=== PATIENT | female | born 1980 | race Two or more races ===

== ENCOUNTER 2017-10-28 09:35 | Emergency (ER) | payer MEDICAID ==
[2017-10-28] MEDS ORDERED: MORPHINE SULFATE 10 MG/ML INJ IV ONE ×2 (10:24→14:00)
[2017-10-28] MEDS ORDERED: ONDANSETRON 4 MG TAB.RAPDIS PO ONE (10:24)
--- NOTE | 2017-10-28 10:26 | ER Document Report ---
ED Medical Screen (RME) - General Chief Complaint: Flank Pain Stated Complaint: RIGHT SIDE/FLANK PAIN Time Seen by Provider: 10/28/17 10:20 Mode of Arrival: Ambulatory Information source: Patient Notes: This is a 37-year-old female with a history of a left nephrectomy, kidney infections in the past who presents to the emergency room with right flank pain and dysuria. Her medicines include Xanax, phentermine, Wellbutrin. She is not allergic to any medicines. She does not have any local doctor (she recently moved from [place]). TRAVEL OUTSIDE OF THE [place] IN LAST 30 DAYS: No - Related Data Allergies/Adverse Reactions: No Known Allergies Allergy (Verified 10/28/17 09:36) Past Medical History - Social History Chew tobacco use (# tins/day): No Frequency of alcohol use: None Drug Abuse: None Renal/ Medical History: Denies: Hx Peritoneal Dialysis Past Surgical History: Reports: Hx Mastectomy - Left kidney removed 2015, Hx Tubal Ligation Physical Exam - Vital signs Vitals: Temp Pulse Resp BP Pulse Ox 98.5 F 85 16 125/80 100 10/28/17 09:39 10/28/17 09:39 10/28/17 09:39 10/28/17 09:39 10/28/17 09:39 Course - Vital Signs Vital signs: Temp Pulse Resp BP Pulse Ox 98.5 F 85 16 125/80 100 10/28/17 09:39 10/28/17 09:39 10/28/17 09:39 10/28/17 09:39 10/28/17 09:39
[2017-10-28 10:32] LABS: APPEARANCE,URINE CLOUDY; BILIRUBIN,URINE NEGATIVE (NEGATIVE); COLOR,URINE YELLOW; GLUCOSE, URINE NEGATIVE (NEGATIVE); KETONES,URINE NEGATIVE (NEGATIVE); LEUKOCYTE ESTERASE,URINE LARGE (NEGATIVE); NITRITE,URINE POSITIVE (NEGATIVE); PROTEIN,URINE 30 mg/dL (NEGATIVE); URINE SPECIFIC GRAVITY 1.019; UROBILINOGEN,URINE NEGATIVE mg/dL (<2.0)
[2017-10-28] MEDS ORDERED: CEFTRIAXONE INJ 1000 MG VIAL IV ONE ×2 (11:07→13:15)
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
--- NOTE | 2017-10-28 11:21 | RADIOLOGY REPORT (SQ) ---
EXAM DESCRIPTION: U/S RETROPERITON (RENAL/AORTA) COMPLETED DATE/TIME: 10/28/2017 11:13 am REASON FOR STUDY: RT FLANK PAIN, EVAL FOR HYDRO COMPARISON: None. TECHNIQUE: Dynamic and static grayscale images acquired of the kidneys and bladder and recorded on P ACS. Additional selected color Doppler and spectral images recorded. LIMITATIONS: None. FINDINGS: RIGHT KIDNEY: Normal size. Normal echogenicity. No solid or suspicious masses. No hydronep hrosis. No calcifications. LEFT KIDNEY: Surgically absent. BLADDER: No masses. OTHER FINDINGS: No other significant finding. IMPRESSION: NORMAL RIGHT RENAL AND BLADDER ULTRASOUND. POST LEFT NEPHRECTOMY. TECHNICAL DOCUMENTATION: JOB ID: [id number] [employer]- All Rights Reserved Reading location - IP/workstation name: [email or web address]
[2017-10-28 14:02] LABS: ABSOLUTE LYMPHOCYTES (AUTO) 1.1 10^3/uL (0.5-4.7); ABSOLUTE MONOCYTES (AUTO) 0.4 10^3/uL (0.1-1.4); BASOPHILS % (AUTO) 0.5 % (0-2); HEMOGLOBIN 12.2 g/dL (12.0-15.5); LYMPHOCYTES % (AUTO) 19.6 % (13-45); MEAN CORPUSCULAR HEMOGLOBIN 29.5 pg (27.0-33.4); MEAN CORPUSCULAR HGB CONC 33.8 g/dL (32.0-36.0); MEAN CORPUSCULAR VOLUME 87 fl (80-97); MONOCYTES % (AUTO) 6.7 % (3-13); PLATELET COUNT 190 10^3/uL (150-450); RED BLOOD COUNT 4.13 10^6/uL (3.72-5.28); RED CELL DISTRIBUTION WIDTH 14.9 % (11.5-14.0); SEGMENTED NEUTROPHILS % (AUTO) 73.2 % (42-78); TOTAL CELLS COUNTED % (AUTO) 100 %; WHITE BLOOD COUNT 5.5 10^3/uL (4.0-10.5)
[2017-10-28] MEDS ORDERED: DIPHENHYDRAMINE HCL 50 MG/ML VIAL IV ONE (14:12)
[2017-10-28 14:28] LABS: ALANINE AMINOTRANSFERASE 31 U/L (9-52); ALBUMIN 3.7 g/dL (3.5-5.0); ALKALINE PHOSPHATASE 82 U/L (38-126); ANION GAP 6 (5-19); ASPARTATE AMINO TRANSFERASE 25 U/L (14-36); BILIRUBIN,DIRECT 0.4 mg/dL (0.0-0.4); BILIRUBIN,TOTAL 0.4 mg/dL (0.2-1.3); BLOOD UREA NITROGEN 15 mg/dL (7-20); CALCIUM 8.6 mg/dL (8.4-10.2); CARBON DIOXIDE 26 mmol/L (22-30); CHLORIDE 105 mmol/L (98-107); GLUCOSE 86 mg/dL (75-110); POTASSIUM 4.5 mmol/L (3.6-5.0); SODIUM 137.2 mmol/L (137-145); TOTAL PROTEIN 6.5 g/dL (6.3-8.2)
[2017-10-28] MEDS ORDERED: KETOROLAC TROMETHAMINE INJ/PF 30 MG/1 ML SDV IV ONE (14:47)
[2017-10-28 15:10] VITALS: BP 118/78
== END 2017-10-28 15:09 | disposition home or self-care (01) ==
LOC: ER 09:35
DX: N12 Tubulo-interstitial nephritis, not specified as acute or chronic (principal); R10.9 Unspecified abdominal pain; Z87.440 Personal history of urinary (tract) infections; Z90.5 Acquired absence of kidney; Z98.51 Tubal ligation status
CPT/HCPCS: 99284; 96375; 96365; 36415; 87086; 84702; 85025; 87088; 80053; 81001; 87186; 76770; J1200; S0119; J1885; J2270; J0696

== ENCOUNTER → 2017-11-28 | Outpatient (CLI) | payer MEDICAID ==
--- NOTE | 2017-11-28 14:32 | RADIOLOGY REPORT (SQ) ---
EXAM DESCRIPTION: KNEE LEFT 4 VIEWS COMPLETED DATE/TIME: 11/28/2017 2:15 pm REASON FOR STUDY: ARTHRITIS OF BOTH KNEES M17.0 BILATERAL PRIMARY OSTEOARTHRITIS OF KNEE COMPARISON: None. NUMBER OF VIEWS: Four views. TECHNIQUE: AP, lateral, and both oblique radiographic images acquired of the left knee. LIMITATIONS: None. FINDINGS: MINERALIZATION: Normal. BONES: No acute fracture or dislocation. No worrisome bone lesions. JOINT: No effusion. SOFT TISSUES: No soft tissue swelling. No radio-opaque foreign body. OTHER: No other significant finding. IMPRESSION: NEGATIVE STUDY OF THE LEFT KNEE. NO RADIOGRAPHIC EVIDENCE OF ACUTE INJURY. TECHNICAL DOCUMENTATION: JOB ID: [id number] [employer]- All Rights Reserved Reading location - IP/workstation name: [email or web address]
--- NOTE | 2017-11-28 14:33 | RADIOLOGY REPORT (SQ) ---
EXAM DESCRIPTION: KNEE RIGHT 4 VIEWS COMPLETED DATE/TIME: 11/28/2017 2:15 pm REASON FOR STUDY: ARTHRITIS OF BOTH KNEES M17.0 BILATERAL PRIMARY OSTEOARTHRITIS OF KNEE COMPARISON: None. NUMBER OF VIEWS: Four views. TECHNIQUE: AP, lateral, and both oblique radiographic images acquired of the right knee. LIMITATIONS: None. FINDINGS: MINERALIZATION: Normal. BONES: No acute fracture or dislocation. No worrisome bone lesions. JOINT: No effusion. SOFT TISSUES: No soft tissue swelling. No radio-opaque foreign body. OTHER: No other significant finding. IMPRESSION: NEGATIVE STUDY OF THE RIGHT KNEE. NO RADIOGRAPHIC EVIDENCE OF ACUTE INJURY. TECHNICAL DOCUMENTATION: JOB ID: [id number] [employer]- All Rights Reserved Reading location - IP/workstation name: [email or web address]
== END ==
LOC: OD 13:52
PROVIDERS: ATTEND Family Medicine
DX: M17.0 Bilateral primary osteoarthritis of knee (principal)

== ENCOUNTER → 2018-03-03 | Outpatient (CLI) | payer MEDICAID ==
[2018-03-03 13:51] LABS: ABSOLUTE LYMPHOCYTES (AUTO) 0.9 10^3/uL (0.5-4.7); ABSOLUTE MONOCYTES (AUTO) 0.4 10^3/uL (0.1-1.4); ABSOLUTE NEUT (AUTO) 3.4 10^3/uL (1.7-8.2); HEMATOCRIT 36.8 % (36.0-47.0); HEMOGLOBIN 12.4 g/dL (12.0-15.5); LYMPHOCYTES % (AUTO) 19.4 % (13-45); MEAN CORPUSCULAR HEMOGLOBIN 29.2 pg (27.0-33.4); MEAN CORPUSCULAR HGB CONC 33.7 g/dL (32.0-36.0); MEAN CORPUSCULAR VOLUME 87 fl (80-97); MONOCYTES % (AUTO) 7.8 % (3-13); PLATELET COUNT 193 10^3/uL (150-450); RED BLOOD COUNT 4.24 10^6/uL (3.72-5.28); RED CELL DISTRIBUTION WIDTH 14.8 % (11.5-14.0); SEGMENTED NEUTROPHILS % (AUTO) 72.8 % (42-78); TOTAL CELLS COUNTED % (AUTO) 100 %; WHITE BLOOD COUNT 4.7 10^3/uL (4.0-10.5)
[2018-03-03 13:52] LABS: AMORPHOUS SEDIMENT,URINE TRACE /HPF; APPEARANCE,URINE CLOUDY; BILIRUBIN,URINE NEGATIVE (NEGATIVE); COLOR,URINE YELLOW; GLUCOSE, URINE NEGATIVE (NEGATIVE); KETONES,URINE NEGATIVE (NEGATIVE); LEUKOCYTE ESTERASE,URINE SMALL (NEGATIVE); NITRITE,URINE NEGATIVE (NEGATIVE); PROTEIN,URINE NEGATIVE (NEGATIVE); URINE SPECIFIC GRAVITY 1.017; UROBILINOGEN,URINE NEGATIVE mg/dL (<2.0)
[2018-03-03 14:30] LABS: ANION GAP 8 (5-19); BLOOD UREA NITROGEN 17 mg/dL (7-20); CALCIUM 9.1 mg/dL (8.4-10.2); CARBON DIOXIDE 27 mmol/L (22-30); CHLORIDE 105 mmol/L (98-107); GLUCOSE 85 mg/dL (75-110); POTASSIUM 4.4 mmol/L (3.6-5.0); SODIUM 140.2 mmol/L (137-145)
== END ==
LOC: OD 12:07
PROVIDERS: ATTEND Internal Medicine Nephrology
DX: R10.9 Unspecified abdominal pain (principal); Z90.5 Acquired absence of kidney
CPT/HCPCS: 36415; 80048; 81001; 85025

== ENCOUNTER → 2018-07-11 | Outpatient (CLI) | payer MEDICAID ==
--- NOTE | 2018-07-11 11:41 | RADIOLOGY REPORT (SQ) ---
EXAM DESCRIPTION: HAND LEFT 3 VIEWS COMPLETED DATE/TIME: 07/11/2018 11:27 am REASON FOR STUDY: PAIN IN LEFT HAND M79.642 PAIN IN LEFT HAND COMPARISON: None. EXAM PARAMETERS: NUMBER OF VIEWS: Three views. TECHNIQUE: AP, lateral and oblique radiographic images acquired of the left hand. LIMITATIONS: Patient could not remove the ring from the 4th digit. FINDINGS: MINERALIZATION: Normal. BONES: No acute fracture or dislocation. No worrisome bone lesions. JOINTS: No effusions. SOFT TISSUES: No soft tissue swelling. No foreign body. OTHER: No other significant finding. IMPRESSION: NEGATIVE STUDY OF THE LEFT HAND. NO RADIOGRAPHIC EVIDENCE OF ACUTE INJURY. TECHNICAL DOCUMENTATION: JOB ID: [id number] [employer]- All Rights Reserved Reading location - IP/workstation name: [email or web address]
== END ==
LOC: OD 11:11
PROVIDERS: ATTEND Nurse Practitioner Family
DX: M79.642 Pain in left hand (principal)

== ENCOUNTER → 2018-09-26 | Outpatient (CLI) | payer MEDICAID ==
--- NOTE | 2018-09-27 09:10 | WOMENS IMAGING REPORT ---
EXAM DESCRIPTION: BILAT SCREENING MAMMO W/CAD COMPLETED DATE/TIME: 09/26/2018 3:45 pm REASON FOR STUDY: Z12.31 SCREENING MAMMO Z12.31 ENCNTR SCREEN MAMMOGRAM FOR MALIGNANT NEOPLASM OF B RE COMPARISON: None. EXAM PARAMETERS: Standard craniocaudal and mediolateral oblique views of each breast recorded using digital acquisition. Read with the assistance of CAD. .[facility] - [employer] Sprayer Version 9.2 LIMITATIONS: None. FINDINGS: No suspicious masses, suspicious calcifications or architectural distortion. No areas of c oncern. IMPRESSION: Negative MAMMOGRAM. BIRADS 1 BREAST DENSITY: b. There are scattered areas of fibroglandular density. BIRAD: ASSESSMENT: 1 NEGATIVE RECOMMENDATION: ROUTINE SCREENING COMMENT: The patient has been notified of the results by letter per MQSA requirements. Additional no tification policies are in place for contacting patient with suspicious or incomplete findings. Quality ID #225: The [employer] recommends an annual screening mammogram for women aged 40 years or over. This facility utilizes a reminder system to ensure that all patients receive reminder letters, and/or direct phone calls for appointments. This includes reminders for routine scr eening mammograms, diagnostic mammograms, or other Breast Imaging Interventions when appropriate. Th is patient will be placed in the appropriate reminder system. TECHNICAL DOCUMENTATION: FINDING NUMBER: (1) ASSESSMENT: (1) JOB ID: [id number] [employer]- All Rights Reserved Reading location - IP/workstation name: [email or web address]
== END ==
LOC: WI 13:20
PROVIDERS: ATTEND Nurse Practitioner Family
DX: Z12.31 Encounter for screening mammogram for malignant neoplasm of breast (principal)
CPT/HCPCS: 77067

== ENCOUNTER 2018-12-18 14:40 | Emergency (ER) | payer MEDICAID ==
[2018-12-18] MEDS ORDERED: KETOROLAC TROMETHAMINE INJ/PF 30 MG/1 ML SDV IV ONE (15:52)
[2018-12-18] MEDS ORDERED: ONDANSETRON HCL INJ/PF 4 MG/2 ML SDV IV ONE (15:52)
[2018-12-18] MEDS ORDERED: FENTANYL CITRATE INJ/PF 100 MCG/2 ML AMPUL IV ONE (15:53)
[2018-12-18 16:28] LABS: ABSOLUTE LYMPHOCYTES (AUTO) 1.2 10^3/uL (0.5-4.7); ABSOLUTE MONOCYTES (AUTO) 0.4 10^3/uL (0.1-1.4); HEMOGLOBIN 12.3 g/dL (12.0-15.5); PLATELET COUNT 265 10^3/uL (150-450); TOTAL CELLS COUNTED % (AUTO) 100 %
[2018-12-18 16:37] LABS: ABSOLUTE NEUT (AUTO) 4.7 10^3/uL (1.7-8.2); BASOPHILS % (AUTO) 0.4 % (0-2); LYMPHOCYTES % (AUTO) 19.5 % (13-45); MEAN CORPUSCULAR HEMOGLOBIN 29.5 pg (27.0-33.4); MEAN CORPUSCULAR HGB CONC 34.1 g/dL (32.0-36.0); MEAN CORPUSCULAR VOLUME 86 fl (80-97); MONOCYTES % (AUTO) 5.9 % (3-13); RED BLOOD COUNT 4.16 10^6/uL (3.72-5.28); RED CELL DISTRIBUTION WIDTH 15.7 % (11.5-14.0); SEGMENTED NEUTROPHILS % (AUTO) 74.2 % (42-78); WHITE BLOOD COUNT 6.3 10^3/uL (4.0-10.5)
[2018-12-18 16:49] LABS: ALBUMIN 4.5 g/dL (3.5-5.0); ALKALINE PHOSPHATASE 100 U/L (38-126); ANION GAP 9 (5-19); ASPARTATE AMINO TRANSFERASE 34 U/L (14-36); BILIRUBIN,DIRECT 0.1 mg/dL (0.0-0.4); BILIRUBIN,TOTAL 0.5 mg/dL (0.2-1.3); BLOOD UREA NITROGEN 12 mg/dL (7-20); CALCIUM 8.9 mg/dL (8.4-10.2); CARBON DIOXIDE 25 mmol/L (22-30); CHLORIDE 105 mmol/L (98-107); GLUCOSE 93 mg/dL (75-110); POTASSIUM 4.1 mmol/L (3.6-5.0); TOTAL PROTEIN 8.1 g/dL (6.3-8.2)
[2018-12-18 17:11] LABS: APPEARANCE,URINE CLEAR; BILIRUBIN,URINE NEGATIVE (NEGATIVE); COLOR,URINE STRAW; GLUCOSE, URINE NEGATIVE (NEGATIVE); KETONES,URINE NEGATIVE (NEGATIVE); LEUKOCYTE ESTERASE,URINE NEGATIVE (NEGATIVE); NITRITE,URINE NEGATIVE (NEGATIVE); PROTEIN,URINE NEGATIVE (NEGATIVE); URINE SPECIFIC GRAVITY 1.004; UROBILINOGEN,URINE NEGATIVE mg/dL (<2.0)
[2018-12-18] MEDS ORDERED: HYDROMORPHONE HCL INJ/PF 2 MG/ML AMPULE IV ONE (18:02)
--- NOTE | 2018-12-18 18:10 | ER Document Report ---
ED General - General Chief Complaint: Flank Pain Stated Complaint: FLANK PAIN Time Seen by Provider: 12/18/18 15:47 Primary Care Provider: PAT MARIA FNP-C [Primary Care Provider] - Follow up as needed TRAVEL OUTSIDE OF THE [place] IN LAST 30 DAYS: No - Related Data Allergies/Adverse Reactions: No Known Allergies Allergy (Verified 10/28/17 09:36) Home Medications: prestique, welbutrin, gabapentin, oxycodone Past Medical History - Social History Smoking Status: Never Smoker Chew tobacco use (# tins/day): No Frequency of alcohol use: Occasional Drug Abuse: Marijuana Family History: Reviewed & Not Pertinent Patient has suicidal ideation: No Patient has homicidal ideation: No Renal/ Medical History: Denies: Hx Peritoneal Dialysis Past Surgical History: Reports: Hx Mastectomy - Left kidney removed 2015, Hx Tubal Ligation Physical Exam - Vital signs Vitals: Temp Pulse Resp BP Pulse Ox 98.8 F 86 16 156/128 H 100 12/18/18 15:49 12/18/18 15:49 12/18/18 15:49 12/18/18 15:49 12/18/18 15:49 - Notes Notes: Patient presents emerge department planing of right flank pain that started yesterday. Radiation into the right side. Came on gradually got progressively worse. Some nausea with this. Any fevers meeting dysuria urgency or frequency but does have some pressure. Her family doctor today had negative urine was referred in here for further evaluation. Is reported that she has frequent UTIs has been told she has stones in her kidneys but has never passed a stone. Patient also reports that over the past week she had 3 episodes of chest pain. Not related to food or activity. Is a stabbing sensation in substernal area that radiates up into her arm a few seconds and goes away. Stop for second and the pain resolves. Not related to activity or meals. She rests her second she can keep going. Get sweaty with it but does not have any shortness of breath nausea vomiting or palpitations. 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 No history of PE hypertension diabetes heart disease or elevated cholesterol Social history she does not smoke occasional alcohol LMP she just finished. Family history patient does not keep in touch with most of her family members Medications she is on aspirin only no anticoagulant PHYSICAL EXAMINATION: Vital signs noted blood pressure was noted however the patient is uncomfortable and this will be repeated GENERAL: Well-appearing, well-nourished and in no distress from pain HEAD: Atraumatic, normocephalic. EYES: Pupils equal round and reactive to light, extraocular movements intact, sclera anicteric, conjunctiva are normal. ENT: nares patent, oropharynx clear without exudates. Moist mucous membranes. NECK: Normal range of motion, supple without lymphadenopathy LUNGS: Breath sounds clear to auscultation bilaterally and equal. No wheezes rales or rhonchi. There is significant tenderness over the lower sternal border that reduce her pain. There is no crepitus or lesions HEART: Regular rate and rhythm without murmurs ABDOMEN: Soft, nontender, normoactive bowel sounds. EXTREMITIES: No deformity. No palpable cords no pitting or edema. No cyanosis. NEUROLOGICAL: No focal neurological deficits. Moves all extremities spontaneously and on command. PSYCH: Normal mood, normal affect. SKIN: Warm, Dry, normal turgor, no rashes or lesions noted. Back no pain with sitting but there is some very mild CVA tenderness on the right Course - Re-evaluation Re-evalutation: 12/18/18 18:43 Addendum the chest pain appears to be musculoskeletal it is reproducible. She has no changes on her EKG PERC score would put her at low risk 12/18/18 19:08 Ed patient is remained stable she was given fentanyl and ketorolac initially from triage and then Dilaudid seems to be resting more comfortably 12/18/18 19:26 dictation done using voice activated software,so there may be some unintentional grammatical error dr salcido to assume care at 1930 12/18/18 19:33 - Vital Signs Vital signs: Temp Pulse Resp BP Pulse Ox 99.0 F 88 18 146/91 H 100 12/18/18 17:49 12/18/18 17:49 12/18/18 17:49 12/18/18 17:49 12/18/18 17:49 - Laboratory Result Diagrams: 12/18/18 16:05 12/18/18 16:05 Laboratory results interpreted by me: 12/18/18 12/18/18 16:05 16:05 RDW 15.7 H Est GFR (MDRD) Non-Af 56 L - EKG Interpretation by Me Additional EKG results interpreted by me: 12/18/18 18:42 EKG read by me shows a normal sinus rhythm with a rate of 74 normal axis and QRS and no nonspecific ST wave changes Discharge - Discharge Clinical Impression: Chest pain in adult Condition: Good Disposition: HOME, SELF-CARE Instructions: Chest Wall Pain ([facility]) Additional Instructions: Please review the discharge instructions Drink plenty of fluids Follow-up with your family doctor in 2 to 3 days if not better Return to the ED if you get worse Your blood pressure was elevated today needs to be rechecked again in 1 to 2 weeks to determine if need to be on medications if untreated high blood pressure can cause heart attack and stroke Forms: Elevated Blood Pressure Referrals: PAT MARIA FNP-C [Primary Care Provider] - Follow up as needed
--- NOTE | 2018-12-18 19:47 | RADIOLOGY REPORT (SQ) ---
EXAM DESCRIPTION: CT ABD/PELVIS NO ORAL OR IV COMPLETED DATE/TIME: 12/18/2018 6:52 pm REASON FOR STUDY: Flank pain COMPARISON: None. TECHNIQUE: CT scan of the abdomen and pelvis performed without intravenous or oral contrast. Images reviewed with lung, soft tissue, and bone windows. Reconstructed coronal and sagittal MPR images revi ewed. All images stored on PACS. All CT scanners at this facility use dose modulation, iterative reconstruction, and/or weight based d osing when appropriate to reduce radiation dose to as low as reasonably achievable (ALARA). [facility]: Dose Right [facility]: CareDose [facility]: Dose Right [facility]: Teradose 4D [facility]: [employer] RADIATION DOSE: mGy. LIMITATIONS: None. FINDINGS: LOWER CHEST: No significant findings. No nodules or infiltrates. NON-CONTRASTED LIVER, SPLEEN, ADRENALS: Evaluation limited by lack of IV contrast. No identified sign ificant masses. PANCREAS: No masses. No peripancreatic inflammatory changes. GALLBLADDER: Surgically absent. RIGHT KIDNEY AND URETER: No cysts identified. No solid masses. No calcified stones. No hydronephrosis or hydroureter. LEFT KIDNEY AND URETER: Surgically absent. AORTA AND RETROPERITONEUM: No aneurysm. No retroperitoneal masses or adenopathy. BOWEL AND PERITONEAL CAVITY: No obvious masses or inflammatory changes. No free fluid. APPENDIX: Normal. PELVIS, BLADDER, AND ABDOMINAL WALL: No free fluid. Unremarkable bladder. BONES: No acute findings. OTHER: No other significant finding. IMPRESSION: NO ACUTE FINDINGS. TECHNICAL DOCUMENTATION: JOB ID: [id number] Quality ID # [id number]: Final reports with documentation of one or more dose reduction techniques (e.g., Au tomated exposure control, adjustment of the mA and/or kV according to patient size, use of iterative reconstruction technique) 2010 [employer]- All Rights Reserved Reading location - IP/workstation name: [email or web address]
--- NOTE | 2018-12-18 20:01 | RADIOLOGY REPORT (SQ) ---
EXAM DESCRIPTION: CHEST 2 VIEWS COMPLETED DATE/TIME: 12/18/2018 7:01 pm REASON FOR STUDY: cp COMPARISON: None. EXAM PARAMETERS: NUMBER OF VIEWS: two views TECHNIQUE: Digital Frontal and Lateral radiographic views of the chest acquired. RADIATION DOSE: NA LIMITATIONS: none FINDINGS: LUNGS AND PLEURA: No consolidation, masses or pneumothorax. No pleural effusion. MEDIASTINUM AND HILAR STRUCTURES: No masses or contour abnormalities. HEART AND VASCULAR STRUCTURES: Heart normal size. No evidence for failure. BONES: No acute findings. HARDWARE: None in the chest. OTHER: No other significant finding. IMPRESSION: NO ACUTE RADIOGRAPHIC FINDING IN THE CHEST. TECHNICAL DOCUMENTATION: JOB ID: [id number] [id number] 2010 [employer]- All Rights Reserved Reading location - IP/workstation name: [email or web address]
[2018-12-18] MEDS ORDERED: HYDROMORPHONE HCL INJ/PF 2 MG/ML AMPULE IV PRN (20:16)
[2018-12-18 20:48] VITALS: BP 138/80
--- NOTE | 2018-12-19 00:06 | EKG REPORT ---
SEVERITY:- NORMAL ECG - SINUS RHYTHM : Confirmed by: Flakita Nieto MD 19-Dec-2018 00:05:40
== END 2018-12-18 20:48 | disposition home or self-care (01) ==
LOC: ER 14:40
DX: R07.9 Chest pain, unspecified (principal); R10.9 Unspecified abdominal pain; R11.0 Nausea
CPT/HCPCS: 93005; 96376; 99284; 96374; 96375; 36415; 83690; 84703; 85025; 80053; 81001; 84484; 71046; 74176; 93010; J3010; J1885; J1170; J2405

== ENCOUNTER 2019-04-01 13:03 | Emergency (ER) | payer MEDICAID ==
[2019-04-01] MEDS ORDERED: NORMAL SALINE 1000 ML 1,000 ML IV ONE (14:04)
[2019-04-01] MEDS ORDERED: METHOCARBAMOL INJ/PF 1000 MG/10 ML SDV IV ONE (14:05)
--- NOTE | 2019-04-01 14:08 | ER Document Report ---
ED Medical Screen (RME) - General Stated Complaint: STIFF NECK,HEADACHE Time Seen by Provider: 04/01/19 13:59 Primary Care Provider: PAT MARIA FNP-C [Primary Care Provider] - Follow up as needed Mode of Arrival: Wheelchair Information source: Patient Notes: Patient presents stating that she developed neck pain that radiates up into her head. Patient states that symptoms started about 30 minutes prior to arrival. Patient states she did take some Motrin at home. Patient states that the fingers of bilateral hands are numb and tingly. Patient denies any numbness or tingling to the upper extremities. Patient states she feels as though her forehead is tingling as well. Patient very anxious in triage and hyperventilating. Patient with exquisite tenderness with minimal palpation of the paraspinal cervical muscles. Patient states pain increases with movement of her neck. I have greeted and performed a rapid initial assessment of this patient. A comprehensive ED assessment and evaluation of the patient, analysis of test results and completion of the medical decision making process will be conducted by additional ED providers. TRAVEL OUTSIDE OF THE [place] IN LAST 30 DAYS: No - Related Data Allergies/Adverse Reactions: No Known Allergies Allergy (Verified 04/01/19 13:56) Past Medical History Renal/ Medical History: Denies: Hx Peritoneal Dialysis Past Surgical History: Reports: Hx Mastectomy - Left kidney removed 2015, Hx Tub al Ligation Physical Exam - General General appearance: Alert, Anxious In distress: Mild Notes: Tenderness to cervical paraspinal muscles and trapezius muscles bilaterally Doctor's Discharge - Discharge Referrals: PAT MARIA FNP-C [Primary Care Provider] - Follow up as needed
--- NOTE | 2019-04-01 15:11 | RADIOLOGY REPORT (SQ) ---
EXAM DESCRIPTION: CT HEAD WITHOUT COMPLETED DATE/TIME: 04/01/2019 3:02 pm REASON FOR STUDY: , hand tingling COMPARISON: None. TECHNIQUE: Axial images acquired through the brain without intravenous contrast. Images reviewed wi th bone, brain and subdural windows. Additional sagittal and coronal reconstructions were generated. Images stored on PACS. All CT scanners at this facility use dose modulation, iterative reconstruction, and/or weight based d osing when appropriate to reduce radiation dose to as low as reasonably achievable (ALARA). [facility]: Dose Right [facility]: CareDose [facility]: Dose Right [facility]: Teradose 4D [facility]: [employer] RADIATION DOSE: CT Rad equipment meets quality standard of care and radiation dose reduction techniq ues were employed. CTDIvol: 53.2 mGy. DLP: 1097 mGy-cm. mGy. LIMITATIONS: None. FINDINGS: VENTRICLES: All size. Intraventricular hemorrhage including a lateral ventricles 3rd vent ricle and 4th ventricle. CEREBRUM: No masses. No hemorrhage. No midline shift. No evidence for acute infarction. Normal gra y/white matter differentiation. No areas of low density in the white matter. CEREBELLUM: No masses. No hemorrhage. No alteration of density. No evidence for acute infarction. EXTRAAXIAL SPACES: No fluid collections. No masses. ORBITS AND GLOBE: No intra- or extraconal masses. Normal contour of globe without masses. CALVARIUM: No fracture. PARANASAL SINUSES: No fluid or mucosal thickening. SOFT TISSUES: No mass or hematoma. OTHER: No other significant finding. IMPRESSION: Acute intraventricular hemorrhage without hydrocephalus EVIDENCE OF ACUTE STROKE: NO. COMMENT: Pertinent findings on the imaging study reported as a CRITICAL RESULT to MURTAZA GONZALEZ NP at15:04 on 04/01/2019. Category of Critical Result: Intraventricular hemorrhage. Quality ID # [id number]: Final reports with documentation of one or more dose reduction techniques (e.g., Au tomated exposure control, adjustment of the mA and/or kV according to patient size, use of iterative reconstruction technique) TECHNICAL DOCUMENTATION: JOB ID: [id number] 2010 [employer]- All Rights Reserved Reading location - IP/workstation name: [email or web address]
[2019-04-01 15:18] LABS: ABSOLUTE LYMPHOCYTES (AUTO) 0.9 10^3/uL (0.5-4.7); ABSOLUTE MONOCYTES (AUTO) 0.3 10^3/uL (0.1-1.4); ABSOLUTE NEUT (AUTO) 4.1 10^3/uL (1.7-8.2); BASOPHILS % (AUTO) 0.2 % (0-2); HEMATOCRIT 34.5 % (36.0-47.0); HEMOGLOBIN 11.7 g/dL (12.0-15.5); LYMPHOCYTES % (AUTO) 16.9 % (13-45); MEAN CORPUSCULAR HGB CONC 33.9 g/dL (32.0-36.0); MEAN CORPUSCULAR VOLUME 86 fl (80-97); MONOCYTES % (AUTO) 5.4 % (3-13); PLATELET COUNT 188 10^3/uL (150-450); RED BLOOD COUNT 4.03 10^6/uL (3.72-5.28); RED CELL DISTRIBUTION WIDTH 15.1 % (11.5-14.0); SEGMENTED NEUTROPHILS % (AUTO) 77.5 % (42-78); TOTAL CELLS COUNTED % (AUTO) 100 %; WHITE BLOOD COUNT 5.3 10^3/uL (4.0-10.5)
[2019-04-01] MEDS ORDERED: TRANEXAMIC ACID INJ/PF 1,000 MG/10 ML SDV ONE (15:24)
[2019-04-01 15:25] LABS: INTERNATIONAL RATION (INR) 0.93; PARTIAL THROMBOPLASTIN TIME 32.6 SEC (23.5-35.8); PROTHROMBIN TIME 12.5 SEC (11.4-15.4)
[2019-04-01] MEDS ORDERED: LEVETIRACETAM 1000 MG/NACL-ISO 1,000 MG/100 ML RTUPB IV ONE (15:25)
--- NOTE | 2019-04-01 15:25 | EKG REPORT ---
SEVERITY:- BORDERLINE ECG - SINUS RHYTHM BORDERLINE PROLONGED QT INTERVAL : Confirmed by: Clary Loza 01-Apr-2019 15:25:22
[2019-04-01] MEDS ORDERED: LEVETIRACETAM INJ/PF 500 MG/5 ML SDV IV ONE (15:26)
[2019-04-01] MEDS ORDERED: TRANEXAMIC ACID INJ/PF 1,000 MG/10 ML SDV IV ONE (15:30)
[2019-04-01] MEDS ORDERED: HYDROMORPHONE HCL INJ/PF 2 MG/ML AMPULE IV ONE (15:35)
[2019-04-01] MEDS ORDERED: METOPROLOL TARTRATE PF/INJ 5 MG/5 ML SDV IV ONE (15:36)
[2019-04-01 15:37] LABS: ALBUMIN 4.7 g/dL (3.5-5.0); ALKALINE PHOSPHATASE 108 U/L (38-126); ANION GAP 10 (5-19); ASPARTATE AMINO TRANSFERASE 35 U/L (14-36); BILIRUBIN,TOTAL 0.5 mg/dL (0.2-1.3); BLOOD UREA NITROGEN 10 mg/dL (7-20); CALCIUM 9.1 mg/dL (8.4-10.2); CARBON DIOXIDE 22 mmol/L (22-30); CHLORIDE 107 mmol/L (98-107); GLUCOSE 92 mg/dL (75-110); TOTAL PROTEIN 7.7 g/dL (6.3-8.2)
--- NOTE | 2019-04-01 15:54 | ER Document Report ---
ED General - General Chief Complaint: Neck Pain >24hrs old Stated Complaint: STIFF NECK,HEADACHE Time Seen by Provider: 04/01/19 13:59 Primary Care Provider: PAT MARIA FNP-C [Primary Care Provider] - Follow up as needed Mode of Arrival: Wheelchair Information source: Patient, Relative Notes: Patient is a 38-year-old female presenting to the emergency department chief complaint of severe headache. Patient states it started about 1130 today she took an ibuprofen and states the headache got worse and then she ended up with neck pain also. At time of evaluation patient is anxious but otherwise alert and oriented has already been to CT and had a intraventricular hemorrhage identified. TRAVEL OUTSIDE OF THE [place] IN LAST 30 DAYS: No - HPI Onset: Just prior to arrival Onset/Duration: Sudden Quality of pain: Fullness, Pressure, Throbbing Severity: Severe Pain Level: 5 Associated symptoms: None Exacerbated by: Movement Relieved by: Denies Similar symptoms previously: No Recently seen / treated by doctor: No - Related Data Allergies/Adverse Reactions: No Known Allergies Allergy (Verified 04/01/19 13:56) Past Medical History - General Information source: Patient - Social History Smoking Status: Unknown if Ever Smoked Chew tobacco use (# tins/day): No Frequency of alcohol use: None Drug Abuse: Marijuana Lives with: Family Family History: Reviewed & Not Pertinent Patient has suicidal ideation: No Patient has homicidal ideation: No Renal/ Medical History: Denies: Hx Peritoneal Dialysis Psychiatric Medical History: Reports: Hx Anxiety, Hx Depression Past Surgical History: Reports: Hx Mastectomy - Left kidney removed 2016, Hx Tubal Ligation Review of Systems - Review of Systems Notes: REVIEW OF SYSTEMS: CONSTITUTIONAL : Denies fever, chills, or sweats. Denies recent illness. EENT: Denies eye, ear, throat, or mouth pain or symptoms. Denies nasal or sinus congestion. CARDIOVASCULAR: Denies chest pain. RESPIRATORY: Denies cough, cold, or chest congestion. Denies shortness of breath, difficulty breathing, or wheezing. GASTROINTESTINAL: Denies abdominal pain. Denies nausea, vomiting, or diarrhea. Denies constipation. GENITOURINARY: Denies difficulty urinating, painful urination, burning, frequency, or blood in urine. MUSCULOSKELETAL: Denies neck or back pain or joint pain or swelling. SKIN: Denies rash or skin lesions. HEMATOLOGIC : Denies easy bruising or bleeding. NEUROLOGICAL: Patient reports severe headache denies altered mental status or loss of consciousness. Denies weakness or paralysis or loss of use of either side. Denies problems with gait or speech. Denies sensory or motor loss. PSYCHIATRIC: Denies suicidal or homicidal ideations 10 Systems are negative unless otherwise specified above Physical Exam - Vital signs Vitals: Temp Pulse Resp BP Pulse Ox 98.2 F 74 18 136/93 H 100 04/01/19 13:36 04/01/19 13:36 04/01/19 13:36 04/01/19 13:36 04/01/19 13:36 - Notes Notes: PHYSICAL EXAMINATION: GENERAL: Patient is alert and oriented however in moderate discomfort and anxiety. HEAD: Atraumatic, normocephalic. EYES: Pupils equal round and reactive to light, extraocular movements intact, sc leidy anicteric, conjunctiva are normal. ENT: nares patent, oropharynx clear without exudates. Moist mucous membranes. NECK: Normal range of motion, supple without lymphadenopathy, no appreciable JVD LUNGS: Lungs clear to auscultation bilaterally and equal. No wheezes rales or rhonchi. HEART: Regular rate and rhythm without murmurs ABDOMEN: Soft, nontender, normal bowel sounds. No guarding, no rebound. No masses appreciated. EXTREMITIES: Active full range of motion, no pitting or edema. No cyanosis. 2+ pulses x4 NEUROLOGICAL: At time of evaluation the patient is alert and oriented x3, Glascow coma scale of 15, cranial nerves II through XII are grossly intact, sensations intact, motor is intact, there are no signs of nystagmus, there is no pronator drift, there is no facial asymmetry, tongue protrusion is midline, reflexes are equal and bilateral, patient answers all questions appropriately follows commands appropriately. SKIN: Warm, Dry, and intact. Normal turgor, no rashes or lesions noted. Course - Re-evaluation Re-evalutation: 04/01/19 15:39 Patient was identified as having a intraventricular bleed and brought back to trauma 1. Patient is alert and oriented. I did examine the patient and subsequently spoke with Dr. Raya Lunsford neurosurgery documentation clerk who requested blood pressure stay below 140 systolic. She also recommended TXA 1 g IV and Keppra 1 g IV. Patient and family are aware of same. 04/01/19 15:54 Patient has been reevaluated multiple times while in emergency department the patient is remained stable without any signs of decompensation. Patient did get medications as prescribed. 04/01/19 16:20 Patient was seen and evaluated by [facility] ambulance service and has been stabilized and will be transferred to [facility] - Vital Signs Vital signs: Temp Pulse Resp BP Pulse Ox 98.2 F 74 14 152/94 H 100 04/01/19 13:36 04/01/19 13:36 04/01/19 15:41 04/01/19 15:41 04/01/19 15:40 - Laboratory Result Diagrams: 04/01/19 15:02 04/01/19 15:02 Laboratory results interpreted by me: 04/01/19 04/01/19 04/01/19 15:02 15:02 15:02 Hgb 11.7 L Hct 34.5 L RDW 15.1 H Est GFR (MDRD) Non-Af 58 L NT-Pro-B Natriuret Pep 178 H - Diagnostic Test Radiology reviewed: Reports reviewed - EKG Interpretation by Me EKG shows normal: Sinus rhythm Rate: Normal Rhythm: NSR When compared to previous EKG there are: No significant change Discharge - Discharge Clinical Impression: Intraventricular hemorrhage Condition: Fair Disposition: [facility] Referrals: PAT MARIA FNP-C [Primary Care Provider] - Follow up as needed
[2019-04-01 16:02] VITALS: BP 152/94
[2019-04-01 16:09] LABS: AMORPHOUS SEDIMENT,URINE TRACE /HPF; APPEARANCE,URINE CLOUDY; BILIRUBIN,URINE NEGATIVE (NEGATIVE); COLOR,URINE YELLOW; GLUCOSE, URINE NEGATIVE (NEGATIVE); KETONES,URINE NEGATIVE (NEGATIVE); LEUKOCYTE ESTERASE,URINE NEGATIVE (NEGATIVE); NITRITE,URINE NEGATIVE (NEGATIVE); PROTEIN,URINE NEGATIVE (NEGATIVE); UROBILINOGEN,URINE NEGATIVE mg/dL (<2.0)
[2019-04-01 16:24] LABS: URINE AMPHETAMINES SCREEN NEGATIVE; URINE BARBITURATES SCREEN NEGATIVE; URINE BENZODIAZEPINES SCREEN NEGATIVE; URINE COCAINE SCREEN NEGATIVE; URINE METHADONE SCREEN NEGATIVE; URINE PHENCYCLIDINE SCREEN NEGATIVE
[2019-04-01 16:28] LABS: URINE MARIJUANA (THC) SCREEN UNCONFIRMED POSITIVE
== END 2019-04-01 15:56 | disposition short-term general hospital (02) ==
LOC: ER 13:03
DX: I61.5 Nontraumatic intracerebral hemorrhage, intraventricular (principal); M54.2 Cervicalgia; M43.6 Torticollis; R51 Headache
CPT/HCPCS: 93005; 99285; 96374; 96375; 36415; 85025; 85610; 85730; 81025; 80053; 81001; 80307; 83880; 70450; 93010; J1170; J1953; J3490

== ENCOUNTER 2019-07-09 20:40 | Emergency (ER) | payer MEDICAID ==
[2019-07-09] MEDS ORDERED: ACETAMINOPHEN 325 MG TABLET PO ONE (20:56)
[2019-07-09] MEDS ORDERED: ONDANSETRON HCL INJ/PF 4 MG/2 ML SDV IV ONE (20:56)
--- NOTE | 2019-07-09 20:59 | ER Document Report ---
ED General - General Chief Complaint: Syncope Stated Complaint: POSSIBLE SYNCOPE Time Seen by Provider: 07/09/19 20:47 Primary Care Provider: PAT MARIA FNP-C [Primary Care Provider] - Follow up as needed Notes: Patient is a 38-year-old female that comes emergency department for chief complaint of sudden onset dizziness, weakness, and tiredness. She states that she felt she was going to pass out. EMS reports initial blood pressure was 80 systolic, although this did normalize with 500 cc bolus NS. EMS brought patient to the emergency department, reportedly friend called EMS after they became concerned about how the patient appeared. Patient states symptoms did start just prior to arrival. Patient states she felt fine during the day. She does report a headache but denies a severe headache, she denies chest pain, palpitations, abdominal pain, vomiting, fever or any other complaints. Patient also states that she "had a couple of drags of marijuana" just earlier this evening. She denies recreational drugs otherwise, alcohol, smoking. 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 She is also on baclofen and percocet. No other medical history reported. TRAVEL OUTSIDE OF THE [place] IN LAST 30 DAYS: No - Related Data Allergies/Adverse Reactions: No Known Allergies Allergy (Verified 04/01/19 13:56) Past Medical History - General Information source: Patient - Social History Smoking Status: Former Smoker Frequency of alcohol use: None Drug Abuse: Marijuana Lives with: Family Family History: Reviewed & Not Pertinent Patient has homicidal ideation: No Renal/ Medical History: Denies: Hx Peritoneal Dialysis Psychiatric Medical History: Reports: Hx Anxiety, Hx Depression Past Surgical History: Reports: Hx Mastectomy - Left kidney removed 2015, Hx Tubal Ligation - Immunizations Immunizations up to date: Yes Hx Diphtheria, Pertussis, Tetanus Vaccination: Yes Review of Systems - Review of Systems Constitutional: See HPI EENT: No symptoms reported Cardiovascular: See HPI Respiratory: No symptoms reported Gastrointestinal: No symptoms reported Genitourinary: No symptoms reported Female Genitourinary: No symptoms reported Musculoskeletal: No symptoms reported Skin: No symptoms reported Hematologic/Lymphatic: No symptoms reported Neurological/Psychological: See HPI Physical Exam - Vital signs Vitals: Resp BP Pulse Ox 16 109/69 100 07/09/19 20:43 06/01/20 20:43 07/09/19 20:43 - Notes Notes: GENERAL: Patient is drowsy and slightly sluggish but does not appear to be in any distress and is easily arousable just to voice. Cooperative. HEAD: Normocephalic, atraumatic. EYES: Pupils equal, round, and reactive to light. Extraocular movements intact. ENT: Oral mucosa moist, tongue midline. Oropharynx unremarkable. Airway patent. Nares patent, sinuses non-tender NECK: Full range of motion. Supple. Trachea midline. No lymphadenopathy. LUNGS: Clear to auscultation bilaterally, no wheezes, rales, or rhonchi. No respiratory distress. Non-tender chest wall. HEART: Regular rate and rhythm. No murmur ABDOMEN: Soft, non-tender. Non-distended. EXTREMITIES: Moves all 4 extremities spontaneously. No edema, normal radial and dorsalis pedis pulses bilaterally. No cyanosis. BACK: no cervical, thoracic, lumbar midline tenderness. No saddle anesthesia, normal distal neurovascular exam. Moves all extremities in full range of motion. NEUROLOGICAL: Alert and oriented x3. Normal speech. Cranial nerves II through XII grossly intact. Strength 5/5 in all extremities. PSYCH: Cooperative SKIN: Warm, dry, normal turgor. No rashes or lesions noted. Course - Re-evaluation Re-evalutation: Patient speaks in a sluggish manner although she is still alert, oriented to person, place, events, and responds to questions appropriately. Stroke screen is negative, physical exam unremarkable, patient still complains she feels lightheaded. Patient was given IV fluids, Tylenol, Zofran. CAT scan of the head was performed because of patient's reported history, this was unremarkable with no acute findings. Chest x-ray unremarkable. CBC, chemistry, troponin, EKG, urinalysis with no acute findings. Urine drug screen only shows marijuana, alcohol is negative. negative. On reevaluation patient is much more alert. She has no headache, denies any current symptoms, states she feels much improved. Orthostatic vital signs were checked and unremarkable. At this time I am uncertain of patient's transient hypotension and near syncope. Low suspicion of ACS, pulmonary embolism, intracranial hemorrhage, or sepsis as a cause based on her evaluation and work- up. Patient is on multiple sedating medications and I did discuss how medications could be a cause of her symptoms tonight. Based on her lack of symptoms, resolution of symptoms now, and reassuring work-up I feel patient is stable to be discharged, she will follow-up with primary care for additional work-up, discussed return precautions in detail. Patient states appreciation and agreement with plan. Stable and well-appearing at time of discharge. - Vital Signs Vital signs: Temp Pulse Resp BP Pulse Ox 98.3 F 73 16 111/61 100 07/10/19 00:35 07/10/19 00:35 07/10/19 00:35 07/10/19 00:35 07/10/19 00:35 - Laboratory Result Diagrams: 07/09/19 20:35 07/09/19 20:35 Laboratory results interpreted by me: 07/09/19 07/09/19 07/09/19 20:35 20:35 22:48 Hgb 11.1 L Hct 33.9 L MCH 26.9 L RDW 15.1 H Est GFR (MDRD) Non-Af 59 L Glucose 125 H Ur Leukocyte Esterase TRACE H Urine Ascorbic Acid 20 H - EKG Interpretation by Me Additional EKG results interpreted by me: EKG shows sinus rhythm at a rate of 78. Normal axis. QTC of 484. No T wave inversions or ST segment changes in consecutive leads. Discharge - Discharge Clinical Impression: Near syncope Condition: Stable Disposition: HOME, SELF-CARE Additional Instructions: You had an episode of low blood pressure and near syncope. However your evaluation and tests do not show any concerning findings. This can be normal but additional follow-up is recommended. This also can be related to your medications and these may need to be adjusted. Please follow close with primary care. See additional details below. Return for any concerning symptoms. Syncope (fainting or near-fainting) can occur from many different health problems. Or it can be a simple fainting spell requiring no treatment. It is safe for you to go home, but further evaluation will likely be necessary. Your work-up may include tests for internal bleeding, heart disease, medication problems, or near-strokes. Tests are not always required, however, depending on the nature of your problem. The warning signs of an impending faint include: dizziness, lightheadedness, nausea, hot flashes, tingling, and weakness. If this happens, lay down and put your feet up, then wait until all of these symptoms have passed before standing up again. If these episodes become recurrent, or if you develop chest pain, heart palpitations, mental confusion, blurred vision, or headache, then you should call the physician, or go to the emergency room. Forms: Return to Work Referrals: PAT MARIA FNP-C [Primary Care Provider] - Follow up as needed
[2019-07-09 21:05] LABS: ABSOLUTE LYMPHOCYTES (AUTO) 1.6 10^3/uL (0.5-4.7); ABSOLUTE MONOCYTES (AUTO) 0.4 10^3/uL (0.1-1.4); ABSOLUTE NEUT (AUTO) 2.2 10^3/uL (1.7-8.2); BASOPHILS % (AUTO) 0.1 % (0-2); HEMATOCRIT 33.9 % (36.0-47.0); HEMOGLOBIN 11.1 g/dL (12.0-15.5); LYMPHOCYTES % (AUTO) 37.9 % (13-45); MEAN CORPUSCULAR HEMOGLOBIN 26.9 pg (27.0-33.4); MEAN CORPUSCULAR HGB CONC 32.7 g/dL (32.0-36.0); MEAN CORPUSCULAR VOLUME 82 fl (80-97); MONOCYTES % (AUTO) 8.5 % (3-13); PLATELET COUNT 226 10^3/uL (150-450); RED BLOOD COUNT 4.13 10^6/uL (3.72-5.28); RED CELL DISTRIBUTION WIDTH 15.1 % (11.5-14.0); SEGMENTED NEUTROPHILS % (AUTO) 53.5 % (42-78); TOTAL CELLS COUNTED % (AUTO) 100 %; WHITE BLOOD COUNT 4.1 10^3/uL (4.0-10.5)
[2019-07-09] MEDS ORDERED: NORMAL SALINE 1000 ML 1,000 ML IV ONE (21:30)
[2019-07-09 21:32] LABS: ALBUMIN 4.3 g/dL (3.5-5.0); ALKALINE PHOSPHATASE 89 U/L (38-126); ANION GAP 10 (5-19); ASPARTATE AMINO TRANSFERASE 22 U/L (14-36); BILIRUBIN,TOTAL 0.2 mg/dL (0.2-1.3); BLOOD UREA NITROGEN 17 mg/dL (7-20); CARBON DIOXIDE 23 mmol/L (22-30); CHLORIDE 105 mmol/L (98-107); CREATINE KINASE 70 U/L (30-135); GLUCOSE 125 mg/dL (75-110); POTASSIUM 4.3 mmol/L (3.6-5.0)
[2019-07-09 21:33] LABS: ALCOHOL < 10 mg/dL (NONE DETECTED)
--- NOTE | 2019-07-09 21:42 | RADIOLOGY REPORT (SQ) ---
EXAM DESCRIPTION: Radiograph, AP portable view of the chest CLINICAL HISTORY: 38 years Female, weakness, hypotension COMPARISON: Two views of the chest December 18, 2018 FINDINGS: Lungs: Lung volumes have decreased. No focal consolidation. No pneumothorax or pleural effusion. Mediastinum: Cardiac and mediastinal silhouette are normal. Bones: Osseous structures are normal. IMPRESSION: Mild interval reduction in lung volumes. No acute process.
--- NOTE | 2019-07-09 21:51 | RADIOLOGY REPORT (SQ) ---
CT HEAD WITHOUT IV CONTRAST HISTORY: Dizziness, headache, hx of hemorrhagic stroke. COMPARISON: 04/01/2019 TECHNIQUE: CT scan of the brain was performed without IV contrast. This exam was performed according to our departmental dose-optimization program, which includes automated exposure control, adjustment of the mA and/or kV according to patient size and/or use of iterative reconstruction technique. FINDINGS: There has been an interval craniectomy of the vertex scalp with multiple surgical coils in the region of the midline brain parenchyma just superior to the lateral ventricles. No evidence of acute infarction, intracranial hemorrhage, extra-axial fluid collection, or hydrocephalus. No air-fluid levels are seen in the paranasal sinuses to suggest acute sinusitis. No depressed skull fracture. IMPRESSION: 1. No acute intracranial hemorrhage. 2. Postsurgical changes as described above.
--- NOTE | 2019-07-09 22:38 | EKG REPORT ---
SEVERITY:- ABNORMAL ECG - SINUS RHYTHM NONSPECIFIC INTRAVENTRICULAR CONDUCTION DELAY : Confirmed by: Clary Loza 09-Jul-2019 22:38:21
[2019-07-09 22:59] LABS: APPEARANCE,URINE SLIGHTLY-CLOUDY; BILIRUBIN,URINE NEGATIVE (NEGATIVE); COLOR,URINE YELLOW; GLUCOSE, URINE NEGATIVE (NEGATIVE); KETONES,URINE NEGATIVE (NEGATIVE); LEUKOCYTE ESTERASE,URINE TRACE (NEGATIVE); NITRITE,URINE NEGATIVE (NEGATIVE); PROTEIN,URINE NEGATIVE (NEGATIVE); URINE SPECIFIC GRAVITY 1.009; UROBILINOGEN,URINE NEGATIVE mg/dL (<2.0)
[2019-07-09 23:13] LABS: URINE AMPHETAMINES SCREEN NEGATIVE; URINE BARBITURATES SCREEN NEGATIVE; URINE BENZODIAZEPINES SCREEN NEGATIVE; URINE COCAINE SCREEN NEGATIVE; URINE MARIJUANA (THC) SCREEN UNCONFIRMED POSITIVE; URINE METHADONE SCREEN NEGATIVE; URINE PHENCYCLIDINE SCREEN NEGATIVE
[2019-07-10 00:29] VITALS: BP 111/61
== END 2019-07-10 00:35 | disposition home or self-care (01) ==
LOC: ER 20:40
DX: R55 Syncope and collapse (principal); R42 Dizziness and giddiness; R53.1 Weakness; R53.83 Other fatigue; R51 Headache; R40.0 Somnolence; Z86.73 Personal history of transient ischemic attack (TIA), and cerebral infarction without residual deficits; Z79.899 Other long term (current) drug therapy; Z79.891 Long term (current) use of opiate analgesic; Z87.891 Personal history of nicotine dependence
CPT/HCPCS: 93005; 99285; 96361; 96374; 36415; 80307 ×2; 82550; 84703; 85025; 80053; 81001; 84484; 71045; 70450; 93010; J3490; J2405; J7030

== ENCOUNTER 2019-07-27 11:17 | Emergency (ER) | payer MEDICAID ==
[2019-07-27] MEDS ORDERED: ONDANSETRON HCL INJ/PF 4 MG/2 ML SDV IV ONE ×2 (11:49→16:06)
[2019-07-27] MEDS ORDERED: HYDROMORPHONE HCL INJ/PF 2 MG/ML AMPULE IV ONE ×3 (11:50→22:52)
--- NOTE | 2019-07-27 11:56 | ER Document Report ---
ED Medical Screen (RME) - General Chief Complaint: Post Surgical Pain Stated Complaint: HEADACHE/POST OP Time Seen by Provider: 07/27/19 11:40 Primary Care Provider: PAT MARIA FNP-C [Primary Care Provider] - Follow up as needed Notes: Patient is a 38-year-old female who presents emergency department 2 days postop for a cranioplasty. Patient states that she had a hemorrhagic stroke back in March along with an ischemic stroke while she was in surgery. Patient denies any new weakness, but states that she has a headache and swelling to her forehead. Exam: Tenderness to incision site. Edema noted to forehead. Normal strength in all extremities. I have greeted and performed a rapid initial assessment of this patient. A comprehensive ED assessment and evaluation of the patient, analysis of test res ults and completion of medical decision making process will be conducted by an additional ED providers. TRAVEL OUTSIDE OF THE [place] IN LAST 30 DAYS: No - Related Data Allergies/Adverse Reactions: banana Allergy (Verified 07/27/19 11:40) throat swelling morphine Adverse Reaction (Verified 07/27/19 11:40) itching Past Medical History - Social History Chew tobacco use (# tins/day): No Frequency of alcohol use: None Drug Abuse: Marijuana Renal/ Medical History: Reports: Hx Kidney Stones. Denies: Hx Peritoneal Dialysis Psychiatric Medical History: Reports: Hx Anxiety, Hx Depression Past Surgical History: Reports: Hx Mastectomy - Left kidney removed 2015, Hx Tubal Ligation - Immunizations Immunizations up to date: Yes Hx Diphtheria, Pertussis, Tetanus Vaccination: Yes Physical Exam - Vital signs Vitals: Temp Pulse Resp BP Pulse Ox 98.6 F 102 H 16 117/70 99 07/27/19 11:21 07/27/19 11:21 07/27/19 11:21 07/27/19 11:21 07/27/19 11:21 Course - Vital Signs Vital signs: Temp Pulse Resp BP Pulse Ox 98.6 F 102 H 16 117/70 99 07/27/19 11:21 07/27/19 11:21 07/27/19 11:21 07/27/19 11:21 07/27/19 11:21 Doctor's Discharge - Discharge Referrals: PAT MARIA FNP-C [Primary Care Provider] - Follow up as needed
[2019-07-27 12:11] LABS: ABSOLUTE MONOCYTES (AUTO) 0.5 10^3/uL (0.1-1.4); ABSOLUTE NEUT (AUTO) 3.9 10^3/uL (1.7-8.2); BASOPHILS % (AUTO) 0.1 % (0-2); HEMATOCRIT 36.4 % (36.0-47.0); HEMOGLOBIN 12.1 g/dL (12.0-15.5); LYMPHOCYTES % (AUTO) 17.8 % (13-45); MEAN CORPUSCULAR HEMOGLOBIN 26.4 pg (27.0-33.4); MEAN CORPUSCULAR HGB CONC 33.2 g/dL (32.0-36.0); MEAN CORPUSCULAR VOLUME 79 fl (80-97); PLATELET COUNT 239 10^3/uL (150-450); RED BLOOD COUNT 4.58 10^6/uL (3.72-5.28); RED CELL DISTRIBUTION WIDTH 15.4 % (11.5-14.0); SEGMENTED NEUTROPHILS % (AUTO) 73.1 % (42-78); TOTAL CELLS COUNTED % (AUTO) 100 %; WHITE BLOOD COUNT 5.4 10^3/uL (4.0-10.5)
[2019-07-27 12:34] LABS: ALBUMIN 4.6 g/dL (3.5-5.0); ALKALINE PHOSPHATASE 88 U/L (38-126); ANION GAP 8 (5-19); ASPARTATE AMINO TRANSFERASE 19 U/L (14-36); BILIRUBIN,TOTAL 0.5 mg/dL (0.2-1.3); BLOOD UREA NITROGEN 10 mg/dL (7-20); CALCIUM 9.6 mg/dL (8.4-10.2); CARBON DIOXIDE 24 mmol/L (22-30); CHLORIDE 104 mmol/L (98-107); GLUCOSE 108 mg/dL (75-110); TOTAL PROTEIN 7.7 g/dL (6.3-8.2)
--- NOTE | 2019-07-27 12:53 | ER Document Report ---
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 She apparently has surgery in [place]. She was seen on Tuesday and had the bone flap placed back in place. She was discharged home from the hospital yesterday. She presents to the emergency department today with a complaint of headache which is uncontrolled by her pain medications and swelling in her forehead area. She also complains of a crunching sound in her head when she moves around and she is concerned that something is not right. She denies fever, nausea vomiting or dizziness. TRAVEL OUTSIDE OF THE [place] IN LAST 30 DAYS: No - Related Data Allergies/Adverse Reactions: banana Allergy (Verified 07/27/19 11:40) throat swelling morphine Adverse Reaction (Verified 07/27/19 11:40) itching Past Medical History - Social History Smoking Status: Former Smoker Chew tobacco use (# tins/day): No Frequency of alcohol use: None Drug Abuse: Marijuana Family History: Reviewed & Not Pertinent Patient has homicidal ideation: No Renal/ Medical History: Reports: Hx Kidney Stones. Denies: Hx Peritoneal Dialysis Psychiatric Medical History: Reports: Hx Anxiety, Hx Depression Past Surgical History: Reports: Hx Mastectomy - Left kidney removed 2015, Hx Neurologic Surgery - cranioplasty, Hx Tubal Ligation - Immunizations Immunizations up to date: Yes Hx Diphtheria, Pertussis, Tetanus Vaccination: Yes Review of Systems - Review of Systems Notes: Constitutional: Negative for fever. HENT: + Forehead swelling, negative for sore throat. Eyes: Negative for visual changes. Cardiovascular: Negative for chest pain. Respiratory: Negative for shortness of breath. Gastrointestinal: Negative for abdominal pain, vomiting or diarrhea. Genitourinary: Negative for dysuria. Musculoskeletal: Negative for back pain. Skin: Negative for rash. Neurological: + Headaches 10 point ROS negative except as marked above and in HPI. Physical Exam - Vital signs Vitals: Temp Pulse Resp BP Pulse Ox 98.6 F 102 H 16 117/70 99 07/27/19 11:21 07/27/19 11:21 07/27/19 11:21 07/27/19 11:21 07/27/19 11:21 - Notes Notes: PHYSICAL EXAMINATION: Physical Exam: General: Well-nourished well-developed 38-year-old woman in no acute distress HEENT: Surgical site in the mid parietal scalp, michelle in place, swelling in the mid forehead and area above the nasal bridge. No erythema, no crepitus, pupils equal round and reactive to light, MM moist,nares clear, oropharynx cl ear, airway patent Neck: supple, no adenopathy, no masses. Good range of motion Lungs: clear, no wheezing, no rales no rhonchi CVS: Regular rate and rhythm no murmur gallop or rub Abdomen: Soft, active, nontender, no masses, no hepatosplenomegaly Ext: No edema, clubbing or cyanosis. Neuro: Alert and responsive, moving all 4 extremities on command, cranial nerves intact, no focal findings Skin: Intact no open lesions, no rash PSYCH: Normal mood, normal affect. Course - Re-evaluation Re-evalutation: 07/27/19 15:19 I have discussed the findings of the CT scan with the patient. Apparently status post craniotomy flap replacement. There is a 4.4 x 1.2 x 5.2 extradural fluid collection displacing the superior sagittal sinus. Additionally there is extra cranial subcutaneous fluid collections at the surgical site containing multifoci of gas. I have them push the images to Dr. Quezada, Neurosurgery at [facility]. She is arranging for the patient to be transferred . - Vital Signs Vital signs: Temp Pulse Resp BP Pulse Ox 98.6 F 102 H 12 112/69 100 07/27/19 11:21 07/27/19 11:21 07/27/19 14:01 07/27/19 14:00 07/27/19 14:01 - Laboratory Result Diagrams: 07/27/19 11:57 07/27/19 11:57 Laboratory results interpreted by me: 07/27/19 07/27/19 11:57 11:57 MCV 79 L MCH 26.4 L RDW 15.4 H Sodium 136.4 L - Diagnostic Test Radiology reviewed: Image reviewed, Reports reviewed Radiology results interpreted by me: 07/27/19 15:21 CT brain: Status post craniotomy flap replacement, noting a 4.4 x 1.2 x 5.2 cm extradural fluid collection displacing the superior sagittal sinus. Additio jane there is extracranial/subcutaneous fluid collection at the surgical site containing multiple foci of gas. Discharge - Discharge Clinical Impression: Facial swelling, Status post craniotomy Headache Qualifiers: Headache type: unspecified Headache chronicity pattern: unspecified pattern Intractability: not intractable Qualified Code(s): R51 - Headache Condition: Good Disposition: [facility] Referrals: PAT MARIA FNP-C [Primary Care Provider] - Follow up as needed
[2019-07-27 13:16] LABS: VENOUS BLOOD BASE EXCESS -5.1 mmol/L; VENOUS BLOOD HCO3 20.8 mmol/L (20-32); VENOUS BLOOD PCO2 41.7 mmHg (35-63); VENOUS BLOOD PH 7.32 (7.30-7.42)
--- NOTE | 2019-07-27 13:51 | RADIOLOGY REPORT (SQ) ---
EXAM DESCRIPTION: CT HEAD COMBO IMAGES COMPLETED DATE/TIME: 07/27/2019 1:22 pm REASON FOR STUDY: headache; postop COMPARISON: 07/09/2019 TECHNIQUE: Axial images acquired through the brain without and with intravenous contrast. Images re viewed with bone, brain and subdural windows. Additional sagittal and coronal reconstructions were g enerated. Images stored on PACS. All CT scanners at this facility use dose modulation, iterative reconstruction, and/or weight based d osing when appropriate to reduce radiation dose to as low as reasonably achievable (ALARA). [facility]: Dose Right [facility]: CareDose [facility]: Dose Right [facility]: Teradose 4D [facility]: [employer] CONTRAST TYPE AND DOSE: 50 mL Omnipaque 300- low osmolar. RENAL FUNCTION: BUN 10; creatinine 0.83 RADIATION DOSE: CT Rad equipment meets quality standard of care and radiation dose reduction techniq ues were employed. CTDIvol: 53.2 mGy. DLP: 2141 mGy-cm.. LIMITATIONS: None. FINDINGS: VENTRICLES: Normal size and contour. 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 Winn- white matter diff erentiation are normal. No parenchymal hemorrhage or mass. CEREBELLUM: No masses. No hemorrhage. No alteration of density. No evidence for acute infarction. No enhancing lesions. EXTRA-AXIAL SPACES: A 4.4 x 5.2 x 1.2 cm hypoattenuating/simple fluid collection displaces the superi or sagittal sinus consistent with extradural location. Postcontrast imaging demonstrates venous enha ncement along the displaced sinus. ORBITS AND GLOBE: No intra- or extraconal masses. Normal contour of globe without masses. CALVARIUM: Interval replacement of a craniectomy flap. A fluid collection with multiple gaseous jordan ections is seen at the surgical site subcutaneous soft tissues. PARANASAL SINUSES: No fluid or mucosal thickening. SOFT TISSUES: No mass or hematoma. OTHER: No other significant finding. IMPRESSION: Status post craniectomy flap replacement noting a 4.4 x 1.2 x 5.2 cm extradural fluid co llection displacing the superior sagittal sinus. Additionally, there is an extracranial/subcutaneous fluid collection at the surgical site containing multiple foci of gas. EVIDENCE OF ACUTE STROKE: NO. TECHNICAL DOCUMENTATION: JOB ID: [id number] Quality ID # [id number]: Final reports with documentation of one or more dose reduction techniques (e.g., Au tomated exposure control, adjustment of the mA and/or kV according to patient size, use of iterative reconstruction technique) 2010 [employer] [facility]- All Rights Reserved Reading location - IP/workstation name: [email or web address]
[2019-07-27] MEDS ORDERED: ACETAMINOPHEN 325 MG TABLET PO ONE (16:17)
[2019-07-27] MEDS ORDERED: LORAZEPAM INJ 2 MG/1 ML VIAL IV ONE (18:30)
[2019-07-27] MEDS ORDERED: OXYCODONE-ACETAMINOPHEN 5-325 MG TABLET PO ONE ×2 (18:31→20:13)
[2019-07-27] MEDS ORDERED: FENTANYL CITRATE INJ/PF 100 MCG/2 ML AMPUL IV ONE (21:30)
[2019-07-28] MEDS ORDERED: HYDROMORPHONE HCL INJ/PF 2 MG/ML AMPULE IV ONE ×2 (00:35→11:15)
[2019-07-28] MEDS: HYDROMORPHONE HCL INJ/PF 2 MG/ML AMPULE IV PRN ×7 (02:11→14:23)
[2019-07-28] MEDS ORDERED: DIPHENHYDRAMINE HCL 50 MG/ML VIAL IV ONE ×2 (04:06→11:16)
--- NOTE | 2019-07-28 04:13 | ER Document Report ---
Doctor's Note Notes: 07/28/19 04:10 This MD was called to the bedside for evaluation of right eyelid swelling. Patient is awaiting transfer to [facility] at this time and has complained of persistent postoperative pain which she has been receiving approximately 1 mg of Dilaudid IV every 1 hour for. Patient denies shortness of breath, patient also denies itching, however she is scratching her right lateral lower leg with her right hand. There is no evidence of respiratory compromise, no stridor noted, no rash seen. This MD will order a dose of IV Benadryl and monitor the patient's response.
[2019-07-28] MEDS ORDERED: ONDANSETRON HCL INJ/PF 4 MG/2 ML SDV IV ONE (13:10)
[2019-07-28 15:23] VITALS: BP 111/85
== END 2019-07-28 15:35 | disposition short-term general hospital (02) ==
LOC: ER 11:17
DX: G89.18 Other acute postprocedural pain (principal); R22.0 Localized swelling, mass and lump, head; R51 Headache; Z88.6 Allergy status to analgesic agent; Z87.442 Personal history of urinary calculi
CPT/HCPCS: 96376; 99284; 96374; 96375; 36415; 87040; 85025; 80053; 82803; 70470; J3490; J1200; J3010; J1170 ×2; J2060; J2405 ×2

== ENCOUNTER 2019-09-10 16:37 | Emergency (ER) | payer MEDICAID ==
--- NOTE | 2019-09-10 17:41 | ER Document Report ---
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 She states the dressing was changed today and it does flush fine. She states that she developed a small tender raised area on the dorsal mid forearm that she noticed yesterday while in the bath. She called her providers and they told her to come in to have the area evaluated. She states that she does feel like there is some numbness tingling in the fingertips of the right hand PHYSICAL EXAMINATION: Brachial radial and ulnar pulses are present in the right upper extremity. PICC line appears intact with no redness or discharge around the insertion point. There is a small raised erythematous area that is firm and mildly indurated without fluctuance measuring 1.5 cm to the right mid forearm on the dorsal and medial aspect. Capillary refill less than 3 seconds in the fingertips I have greeted and performed a rapid initial assessment of this patient. A comprehensive ED assessment and evaluation of the patient, analysis of test results and completion of medical decision making process will be conducted by an additional ED providers. TRAVEL OUTSIDE OF THE [place] IN LAST 30 DAYS: No - Related Data Allergies/Adverse Reactions: banana Allergy (Verified 09/10/19 17:24) throat swelling morphine Adverse Reaction (Verified 09/10/19 17:24) itching Home Medications: ... Past Medical History - Social History Chew tobacco use (# tins/day): No Frequency of alcohol use: None Drug Abuse: Marijuana Renal/ Medical History: Reports: Hx Kidney Stones. Denies: Hx Peritoneal Dialysis Psychiatric Medical History: Reports: Hx Anxiety, Hx Depression Past Surgical History: Reports: Hx Mastectomy - Left kidney removed 2015, Hx Neurologic Surgery - cranioplasty, Hx Tubal Ligation - Immunizations Immunizations up to date: Yes Hx Diphtheria, Pertussis, Tetanus Vaccination: Yes Physical Exam - Vital signs Vitals: Temp Pulse Resp BP Pulse Ox 99.7 F 99 18 132/92 H 99 09/10/19 16:42 09/10/19 16:42 09/10/19 16:42 09/10/19 16:42 09/10/19 16:42 Course - Vital Signs Vital signs: Temp Pulse Resp BP Pulse Ox 99.7 F 99 18 132/92 H 99 09/10/19 16:42 09/10/19 16:42 09/10/19 16:42 09/10/19 16:42 09/10/19 16:42 Doctor's Discharge - Discharge Referrals: PAT MARIA, [employer]-C [Primary Care Provider] - Follow up as needed
[2019-09-10] MEDS ORDERED: OXYCODONE-ACETAMINOPHEN 5-325 MG TABLET PO ONE (18:01)
--- NOTE | 2019-09-10 18:10 | RADIOLOGY REPORT (SQ) ---
EXAM DESCRIPTION: CHEST 2 VIEWS IMAGES COMPLETED DATE/TIME: 09/10/2019 6:01 pm REASON FOR STUDY: Picc Line eval COMPARISON: 07/09/2019 EXAM PARAMETERS: NUMBER OF VIEWS: two views TECHNIQUE: Digital Frontal and Lateral radiographic views of the chest acquired. RADIATION DOSE: NA LIMITATIONS: none FINDINGS: LUNGS AND PLEURA: No opacities, masses or pneumothorax. No pleural effusion. MEDIASTINUM AND HILAR STRUCTURES: No masses or contour abnormalities. HEART AND VASCULAR STRUCTURES: Heart normal size. No evidence for failure. BONES: No acute findings. HARDWARE: None in the chest. OTHER: No other significant finding. IMPRESSION: NO ACUTE RADIOGRAPHIC FINDING IN THE CHEST. TECHNICAL DOCUMENTATION: JOB ID: [id number] 2010 [employer]- All Rights Reserved Reading location - IP/workstation name: [email or web address]
--- NOTE | 2019-09-10 19:46 | RADIOLOGY REPORT (SQ) ---
EXAM DESCRIPTION: VENOUS UNILATERAL UPPER IMAGES COMPLETED DATE/TIME: 09/10/2019 7:34 pm REASON FOR STUDY: RUE eval for DVT COMPARISON: None. TECHNIQUE: Dynamic and static montaño scale and color images acquired of the right arm venous system. S elected spectral images acquired with additional compression and augmentation maneuvers. The contrala teral subclavian vein and internal jugular vein were also imaged. Images stored on PACS. LIMITATIONS: None. FINDINGS: INTERNAL JUGULAR VEIN: Normal phasicity, compression, augmentation. No visualized echogeni c material on montaño scale. No defects on color images. Comparison opposite side normal. SUBCLAVIAN VEIN: Normal compression, augmentation. No visualized echogenic material on montaño scale. No defects on color images. AXILLARY VEIN: Normal compression, augmentation. No visualized echogenic material on montaño scale. No d efects on color images. BRACHIAL VEIN: Normal compression, augmentation. No visualized echogenic material on montaño scale. No d efects on color images. BASILIC VEIN: Normal compression, augmentation. No visualized echogenic material on montaño scale. No de fects on color images. CEPHALIC VEIN: Diminished flow in the distal cephalic vein. OTHER: No other significant finding. CONTRALATERAL SUBCLAVIAN VEIN AND INTERNAL JUGULAR VEIN: Normal phasicity, compression and augmentation. No visualized echogenic material on montaño scale. No de fects on color images. IMPRESSION: SVT in the distal cephalic vein with the right arm. TECHNICAL DOCUMENTATION: JOB ID: [id number] 2010 [employer]- All Rights Reserved Reading location - IP/workstation name: [email or web address]
[2019-09-10] MEDS ORDERED: OXYCODONE HCL SR 10 MG TABLET PO ONE (20:40)
--- NOTE | 2019-09-10 20:43 | ER Document Report ---
ED Extremity Problem, Upper - General Chief Complaint: Arm Problem Stated Complaint: RIGHT ARM PAIN Time Seen by Provider: 09/10/19 17:34 Primary Care Provider: PAT MARIA FNP-C [Primary Care Provider] - Follow up in 3-5 days Notes: Patient is a 39-year-old female who presents emergency department with a chief complaint of right forearm pain. She has a right upper extremity PICC line placed for IV antibiotics. Patient states that she ended up feeling her right forearm pain when she went to go take a bath today. 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 Denies having an IV placed in the area of her pain. Patient states that she is getting heparin through her PICC line, but is not getting subcutaneous heparin. Patient reports that she only has 1 kidney. TRAVEL OUTSIDE OF THE [place] IN LAST 30 DAYS: No - Related Data Allergies/Adverse Reactions: banana Allergy (Verified 09/10/19 17:24) throat swelling morphine Adverse Reaction (Verified 09/10/19 17:24) itching Home Medications: ... Past Medical History - Social History Smoking Status: Former Smoker Chew tobacco use (# tins/day): No Frequency of alcohol use: None Drug Abuse: Marijuana Family History: Reviewed & Not Pertinent Patient has homicidal ideation: No Renal/ Medical History: Reports: Hx Kidney Stones. Denies: Hx Peritoneal Dialysis Psychiatric Medical History: Reports: Hx Anxiety, Hx Depression Past Surgical History: Reports: Hx Mastectomy - Left kidney removed 2015, Hx Neurologic Surgery - cranioplasty, Hx Tubal Ligation - Immunizations Immunizations up to date: Yes Hx Diphtheria, Pertussis, Tetanus Vaccination: Yes Review of Systems - Review of Systems Notes: REVIEW OF SYSTEMS: CONSTITUTIONAL : Denies recent illness. Denies recent unintentional weight loss. Denies fever, chills, or sweats. EENT: Denies eye, ear, throat, or mouth pain, discharge, or symptoms. Denies nasal or sinus congestion. CARDIOVASCULAR: Denies chest pain. RESPIRATORY: Denies shortness of breath, cough, congestion, difficulty breathing, or wheezing. GASTROINTESTINAL: Denies nausea, vomiting, and diarrhea. Denies abdominal pain. Denies constipation. GENITOURINARY: Denies difficulty urinating, burning, blood in urine, urgency or frequency. MUSCULOSKELETAL: Denies neck and back pain. See HPI. SKIN: Denies rash, itchiness, or lesions HEMATOLOGIC : Denies easy bruising or bleeding. LYMPHATIC: Denies swollen, painful, enlarged glands. NEUROLOGICAL: Denies no numbness or tingling denies weakness. Denies headache. Denies altered mental status. Denies alteration in speech. PSYCHIATRIC: Denies stress, anxiety, alteration in sleep patterns, or depressi on. All other systems reviewed and negative. Physical Exam - Vital signs Vitals: Temp Pulse Resp BP Pulse Ox 99.7 F 99 18 132/92 H 99 09/10/19 16:42 09/10/19 16:42 09/10/19 16:42 09/10/19 16:42 09/10/19 16:42 - Notes Notes: PHYSICAL EXAMINATION: GENERAL: Appears well, healthy, well-nourished, no acute distress. HEAD: Normocephalic, atraumatic. Missing left bone flap. EYES: PERRL, conjunctiva normal, all extraocular movements intact, sclera nonicteric ENT: Moist mucous membranes. NECK: Supple, no noticeable swelling, redness, rash. Normal range of motion. LUNGS: Equal breath sounds bilaterally and clear to auscultation. No wheezes rales or rhonchi. CARDIOVASCULAR: S1-S2, regular rate, regular rhythm. Radial pulses 2+, normal. ABDOMEN: Normoactive bowel sounds. Soft, nontender, no guarding, no rebound tenderness, and no masses palpated. EXTREMITIES: Normal strength and range of motion, no pitting or edema. No cyanosis. Tenderness to right forearm. NEUROLOGICAL: Moves all extremities upon command. Strength 5/5 in all extremities. PSYCH: Normal mood, normal affect. SKIN: Warm, dry. No rash, lesions, ulcerations noted. Normal skin turgor. Course - Re-evaluation Re-evalutation: 09/10/19 21:[address] Burgos, my attending. Advised patient to start NSAIDs and warm compresses due to the patient having a superficial venous thrombosis on ultrasound. Advised the patient to only use low doses of NSAIDs due to her history of only having one kidney. She is in agreement with this plan. Patient is to follow-up with her neurosurgery team on . Advised her to let them know that she does have a superficial venous thrombosis. She is in agreement with this plan. Follow-up precautions were given. Verbal discharge instructions were given to the patient. They verbalized understanding. They are stable for discharge. - Vital Signs Vital signs: Temp Pulse Resp BP Pulse Ox 98.4 F 78 16 112/71 100 09/10/19 22:03 09/10/19 22:03 09/10/19 22:03 09/10/19 22:03 09/10/19 22:03 Discharge - Discharge Clinical Impression: Superficial venous thrombosis of arm Qualifiers: Laterality: right Qualified Code(s): I82.611 - Acute embolism and thrombosis of superficial veins of right upper extremity Condition: Stable Disposition: HOME, SELF-CARE Additional Instructions: You were seen today in the emergency department for right arm pain. You have a small blood clot in your right forearm. Please apply warm compresses to the area to help with the clot. Also take small doses of ibuprofen 200 to 400 mg every 6 hours for your pain. Follow-up with your primary care provider in regards to this visit. Continue your heparin flushes and your antibiotics. Referrals: PAT MARIA FNP-C [Primary Care Provider] - Follow up in 3-5 days
[2019-09-10] MEDS ORDERED: IBUPROFEN 400 MG TABLET PO ONE (21:18)
[2019-09-10 22:10] VITALS: BP 112/71
== END 2019-09-10 22:10 | disposition home or self-care (01) ==
LOC: ER 16:37
DX: I82.611 Acute embolism and thrombosis of superficial veins of right upper extremity (principal); M79.601 Pain in right arm; Z87.442 Personal history of urinary calculi
CPT/HCPCS: 99284; 93971; 71046; J3490 ×2

== ENCOUNTER → 2019-11-01 | Outpatient (CLI) | payer MEDICAID ==
--- NOTE | 2019-11-01 14:38 | RADIOLOGY REPORT (SQ) ---
EXAM DESCRIPTION: MRI ABDOMEN COMBO IMAGES COMPLETED DATE/TIME: 11/01/2019 2:16 pm REASON FOR STUDY: R16.0 HEPATOMEGALY, NOT ELSEWHERE CLASSIFIED R16.0 HEPATOMEGALY, NOT ELSEWHERE CL ASSIFIED COMPARISON: None. TECHNIQUE: Multiplanar multisequence imaging performed without and with contrast including sagittal, axial and coronal T2, axial T1, axial gradient fat sat T1, axial, sagittal and coronal fat sat T1 po st contrast. CONTRAST TYPE AND DOSE: 20 mL Prohance. RENAL FUNCTION: Not indicated. ACR Type II contrast agent associated with few, if any, unconfounded cases of NSF LIMITATIONS: None. FINDINGS: LIVER: Normal size. Well-circumscribed subcapsular lesion in segment 8 measuring 11 x 14 mm. Homogeneously high signal on T2. Homogeneous enhancement. SPLEEN: Normal size. No focal lesions. PANCREAS: No masses. No adjacent inflammation or peripancreatic fluid collections. Pancreatic duct no t dilated. GALLBLADDER: No masses. No stones. No gallbladder wall thickening or pericholecystic fluid. ADRENAL GLANDS: No significant masses or asymmetry. RIGHT KIDNEY AND URETER: No masses. No hydronephrosis. LEFT KIDNEY AND URETER: Absent left kidney. AORTA AND VESSELS: No aneurysm. RETROPERITONEUM: No retroperitoneal adenopathy, hemorrhage or masses. BOWEL: No visualized masses. No inflammation. No significant dilatation. ABDOMINAL WALL AND PERITONEUM: No hernias. No free fluid. BONES: No acute or significant findings. OTHER: No other significant finding. IMPRESSION: Small probable benign hemangioma. Six-month follow-up is recommended to assess stabilit y. TECHNICAL DOCUMENTATION: JOB ID: [id number] 2010 [employer]- All Rights Reserved Reading location - IP/workstation name: [email or web address]
== END ==
LOC: RAD 12:58
PROVIDERS: ATTEND Nurse Practitioner Family
DX: R16.0 Hepatomegaly, not elsewhere classified (principal)
CPT/HCPCS: 74183; A9576

== ENCOUNTER → 2020-02-27 | Outpatient (CLI) | payer MEDICAID ==
--- NOTE | 2020-02-27 11:06 | WOMENS IMAGING REPORT ---
EXAM DESCRIPTION: 3D SCREENING MAMMO BILAT IMAGES COMPLETED DATE/TIME: 02/27/2020 10:21 am REASON FOR STUDY: ROUTINE SCREENING MAMMOGRAM Z12.31 Z12.31 ENCNTR SCREEN MAMMOGRAM FOR MALIGNANT N EOPLASM OF EDGARDO COMPARISON: 09/26/2018, EXAM PARAMETERS: Views: Standard craniocaudal and mediolateral oblique views of each breast recorded using digital acquisition and breast tomosynthesis. Read with the assistance of CAD. .[facility] - [employer]er Operator Version 9.2 LIMITATIONS: None. FINDINGS: No suspicious masses, suspicious calcifications or architectural distortion. No areas of c oncern. IMPRESSION: NEGATIVE MAMMOGRAM. BIRADS 1. BREAST DENSITY: c. The breasts are heterogeneously dense, which may obscure small masses. BIRAD: ASSESSMENT: 1 NEGATIVE RECOMMENDATION: ROUTINE SCREENING COMMENT: The patient has been notified of the results by letter per MQSA requirements. Additional no tification policies are in place for contacting patient with suspicious or incomplete findings. Quality ID #[id number]: The [employer] recommends an annual screening mammogram for women aged 40 years or over. This facility utilizes a reminder system to ensure that all patients receive reminder letters, and/or direct phone calls for appointments. This includes reminders for routine scr eening mammograms, diagnostic mammograms, or other Breast Imaging Interventions when appropriate. Th is patient will be placed in the appropriate reminder system. TECHNICAL DOCUMENTATION: FINDING NUMBER: (1) ASSESSMENT: (1) JOB ID: [id number] 2010 [employer]- All Rights Reserved Reading location - IP/workstation name: [email or web address]
== END ==
LOC: WI 13:08
PROVIDERS: ATTEND Nurse Practitioner Family
DX: Z12.31 Encounter for screening mammogram for malignant neoplasm of breast (principal)
CPT/HCPCS: 77063; 77067